=== PATIENT | female | born 1965 | race Caucasian/White ===

== ENCOUNTER 2018-06-24 10:43 | Inpatient (IN) | payer MEDICAID, OTHER ==
[2018-06-24] MEDS ORDERED: OLANZapine DISINTEGR 5 MG TAB PO ONE (11:07)
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
[2018-06-24 11:51] LABS: PLATELET COUNT 251 10^3/uL (150-400)
[2018-06-24] MEDS ORDERED: IBUPROFEN 800 MG TAB PO ONE (12:32)
[2018-06-24] MEDS ORDERED: LORazepam 2 MG/ML INJ IM ONE (14:14)
[2018-06-24] MEDS ORDERED: OLANZapine 10 MG/2 ML VIAL IM ONE (14:18)
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
--- NOTE | 2018-06-24 15:11 | ASMTTCLDSP ---
TLC Discharge Disposition Disposition: Answers: Admit Was patient given the Answers: Yes Inpatient Behavioral Health Prohibited Belongings List while in the ED? 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
[2018-06-24] MEDS ORDERED: MAG HYDROX/AL HYDROX/SIMETH 30 ML UDCUP PO PRN (18:15)
[2018-06-24] MEDS ORDERED: LORazepam 0.5 MG TAB PO PRN (18:15)
[2018-06-25] MEDS: NICOTINE POLACRILEX 2 MG GUM B PRN ×5 (03:39→23:23)
[2018-06-25] MEDS ORDERED: LEVOTHYROXINE 75 MCG TAB PO SCH (06:00)
[2018-06-25] MEDS: LEVOTHYROXINE 75 MCG TAB PO SCH (10:20)
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
[2018-06-25] MEDS ORDERED: VENLAFAXINE XR 75 MG CAP PO SCH ×2 (13:30→13:50)
[2018-06-25] MEDS ORDERED: PANTOPRAZOLE SODIUM 40 MG TAB PO SCH ×2 (13:30→13:50)
--- NOTE | 2018-06-25 13:57 | BCON ---
[f rep st] BEHAVIORAL HEALTH CONSULTATION INTERNAL MEDICINE CONSULTATION DATE OF CONSULTATION: 06/25/2018 REFERRING PHYSICIAN: Lopez Mckeon MD REASON FOR REFERRAL: Medical clearance for inpatient behavioral health stay. HISTORY OF PRESENT ILLNESS: This patient was brought to the emergency department by [employer] on an M1 hold for acting paranoid and delusional. She was evaluated by the mental health team and admitted for further psychiatric care. She currently complains of pain in multiple areas, including headache bilaterally on her lower abdomen over her hips and bilaterally in her proximal posterior thighs. She reports that she has had chronic nausea for months, but only rarely has she vomited. She had a bowel movement today and is beginning to have return of her appetite. PAST MEDICAL HISTORY: 1. Mental health issues with diagnosis of PTSD. 2. Gastroesophageal reflux disorder. 3. Headaches. 4. Chronic abdominal pain. 5. Hypothyroidism. 6. Asthma. 7. Diabetes. 8. Hypertension. 9. Endometriosis. PAST SURGICAL HISTORY: She has not had surgeries. MEDICATIONS: Prior to admission: 1. Lamotrigine 100 mg p.o. q.h.s. 2. Venlafaxine 75 mg p.o. daily. 3. Omeprazole 20 mg p.o. daily. 4. Levothyroxine 75 mcg p.o. daily. 5. Methylphenidate 36 mg p.o. daily. ALLERGIES: Listed to morphine analogues and oxycodone. SOCIAL HISTORY: She lives with a boyfriend. She is not currently employed. She is a smoker and she had a positive urine drug screen for marijuana. FAMILY HISTORY: Her mother has lung cancer. REVIEW OF SYSTEMS: Other than as in HPI, a 10-point review of systems was negative. PHYSICAL EXAM: VITAL SIGNS: Blood pressure is 113/85, heart rate is 80, respiratory rate is 14, oxygen saturation is 98% on room air. Temperature is 36.6 degrees centigrade. Her weight is 83.9 kg for a body mass index of 29. GENERAL: This is an obese appearing woman who looks older than her chronologic age, dressed in street clothes, cooperative, and in no acute distress. HEENT: Extraocular movements are intact. Pupils are equal, round, and reactive to light. Mucous membranes are moist. She has a crowded airway, Mallampati class 3. NECK: Supple. HEART: Regular rate and rhythm with no murmurs, rubs, or gallops. LUNGS: Clear to auscultation bilaterally. ABDOMEN: Soft. She has mild diffuse tenderness. It is nondistended. There are normoactive bowel sounds. There is no hepatosplenomegaly. EXTREMITIES: There is no cyanosis, clubbing, or edema. Radial and dorsalis pedis pulses are 2+ bilaterally. NEUROLOGIC: She is alert and oriented x3. She has pressured speech and is perseverative. There is no focal weakness. Sensation is intact to light touch and gait is within normal limits. LABORATORY STUDIES: From the emergency department, CBC revealed an elevated white count at 11.09 with a predominance of neutrophils and lymphocytes, there was no left shift. Serum chemistry revealed an elevated chloride at 112 and a low carbon dioxide at 20. Glucose was slightly elevated at 110, but this may not have been fasting. Hemoglobin A1c was normal at 5.5. Liver function tests were normal. Lipid panel revealed an elevated LDL at 147, HDL was 56. TSH was elevated at 8.28. Beta hCG was negative for . Serum drug screen was negative for ethyl alcohol and urine drug screen was non-negative for marijuana , but negative otherwise for substances of abuse. ASSESSMENT/RECOMMENDATIONS: 1. Mental health issues pending further evaluation and management per Psychiatry and mental health team. 2. Headaches. We will prescribe Excedrin Migraine, per her request. 3. Chronic pain. We will prescribe ibuprofen. 4. Gastroesophageal reflux disorder. Will prescribe pantoprazole. 5. Tobacco dependence syndrome. She was encouraged to stop smoking. 6. Hypothyroidism with an elevated thyroid-stimulating hormone. She reports that she has been compliant with levothyroxine and has not missed any doses, but given her recent history, she may not be a reliable resolution specialist. Continue levothyroxine as currently prescribed. Advise a repeat TSH in 4-6 weeks. 7. Dyslipidemia. Per the ACC/AHA cardiovascular risk calculator her 10 year risk for myocardial infarction or stroke is 3.9%, and there is no indication for a statin at present. I see no medical contraindications to this patient's continued stay on the inpatient behavioral health unit or to any psychiatric medications or procedures. Thank you very much for including me in the care of this patient, and please do not hesitate to contact me or the hospitalist service should there be a need for further medical evaluation. /[id number]/MODL MTDD
[2018-06-25] MEDS: IBUPROFEN 200 MG TAB PO PRN ×2 (14:04→20:41)
--- NOTE | 2018-06-25 14:53 | ASMTCMCOM ---
CM Note CM Note Notes: The patient completed FRANCIS's for the following people and providers: [facility] [place] Location- Theodore Leslie MD [place] Location- Marlene Mora--Therapist Martina Justice, sister of patient Date Signed: 06/25/2018 11:07 AM Electronically Signed By:Maria C Cadena
[2018-06-25] MEDS ORDERED: VENLAFAXINE XR 75 MG CAP PO ONE (16:15)
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
[2018-06-25] MEDS: ACETAMINOPHEN/ASA/CAFFEINE 1 EACH TAB PO PRN (20:41)
[2018-06-25] MEDS ORDERED: lamoTRIgine 25 MG TAB PO SCH (21:00)
[2018-06-26] MEDS: NICOTINE POLACRILEX 2 MG GUM B PRN ×7 (00:52→19:59)
[2018-06-26] MEDS: IBUPROFEN 200 MG TAB PO PRN ×4 (02:44→20:00)
[2018-06-26] MEDS: ACETAMINOPHEN/ASA/CAFFEINE 1 EACH TAB PO PRN ×4 (02:44→19:59)
--- NOTE | 2018-06-26 07:53 | PDMN ---
Medical Necessity Medical necessity: Pt meets IP criteria per & ADWOA B-[id number]; est los >2 mn for eval/tx of major depressive disorder w/severe psychotic features; pt gravely disabled & on M1 hold; admit for further monitoring, safety, stabilization & med management; per H&P & order 06/24/18
[2018-06-26] MEDS: lamoTRIgine 25 MG TAB PO SCH (08:31)
[2018-06-26] MEDS: OLANZapine 5 MG TAB PO PRN (08:31)
[2018-06-26] MEDS: PANTOPRAZOLE SODIUM 40 MG TAB PO SCH (08:31)
[2018-06-26] MEDS: VENLAFAXINE XR 75 MG CAP PO SCH (08:31)
[2018-06-26] MEDS ORDERED: VENLAFAXINE XR 75 MG CAP PO SCH (09:00)
[2018-06-26] MEDS: LEVOTHYROXINE 75 MCG TAB PO SCH (09:25)
--- NOTE | 2018-06-26 15:44 | ASMTCMCOM ---
CM Note CM Note Notes: CC attempted to meet with pt. Pt. noticed CC and became startled and yelled at CC. Pt. stated "don't come at me all cheerful, it's condescending when someone is in so much pain". Pt. refused to talk with CC. Pt. told staff she only trusts her psychiatrist and won't speak with any other MDs. Staff report pt. being intrusive, demanding, perseverating on pain, society being unfair, people trying to harm her, and people not listening to her. Staff report pt. being disrespectful to staff and peer pts, and presenting as very entitled. Staff report pt. sleeping 3 hours last night. Date Signed: 06/26/2018 03:43 PM Electronically Signed By:Jordana Ying
--- NOTE | 2018-06-26 17:31 | SOAPPROG ---
SOAP Progress Note Assessment/Plan: Assessment: 53 yo woman with h/o MDD, PTSD, admitted for paranoid delusions, confusion and disorganized thought process. She reports she has not been taking meds, but has been smoking "a lot" of marijuana. Plan: 06/26/18 17:22 1. Patient insists she is not delusional and doesn't need treatment for psychosis. 2. Patient doesn't "trust" staff at [facility] and wants Dr. Leslie to come to unit to treat her. 3. Patient claims she is in "profound pain due to PTSD." However, MD observes patient during interview adjust her position in bed, sit up, turn over, reach for her journal and other belongings, rifle through stack of papers, lean out of bed and reach for her water bottle, adjust her clothes, fix her hair, bend over at waist. While performing all of these movements, patient did not exhibit any pain, no grimacing, gasping, exclamations of pain or distress, no interrupted movements, no halting or interruptions in her speech or response to questions. Patient was resting comfortably in bed when MD and RN entered the room. Dr. Ledbetter has requested abdominal CT from [facility] ED which patient says was normal. Patient is receiving ibuprofen and Excedrin PRN for pain relief. 4. Patient only slept 3 hrs last night. She ate 100% of meals today. 5. Patient denies AH/VH, no evidence of RIS or RES. 6. On [facility] Subjective: MD and RN met with patient in her room. She was lying in bed comfortably when MD and RN entered. She rolled over and made eye contact. Eventually she sat up in bed and starting rifling through a stack of papers and her journal. Patient was angry and hostile to MD and RN. She insisted that she wasn't paranoid or psychotic. She told MD, "they decided I was delusional...I'm just in pain." She went on to say, "I'm in profound pain due to PTSD." When MD repeatedly offered to prescribe an antipsychotic medication for mood stability in addition to Lamictal, patient said, "I don't need any mood stabilizer or antipsychotic." She told MD, "I don't trust a single one of you." She said, "I'm not talking to any of you until Dr. Leslie comes to see me." She wanted Dr. Leslie to treat her while she's in hospital. When MD attempted to explain that Dr. Leslie doesn' t work at [facility], patient insisted "it's one of my rights" to be treated by her outpatient doctor while she's in hospital. MD tried to clarify, but patient talked over MD and wouldn't let MD get a word in. Objective: Vital Signs Temp Pulse Resp BP Pulse Ox 36.9 C 90 16 135/99 H 95 06/26/18 16:48 06/26/18 16:48 06/26/18 16:48 06/26/18 16:48 06/26/18 16:48 MSE: Affect: Labile, irritable, angry Mood: "I'm fine" TP: Disorganized, loose , illogical TC: Denies any SI/HI, no AH/VH, still paranoid and delusional Insight/Judgment: Impaired - Time Spent With Patient Time Spent With Patient: 15" - Pending Discharge Pending Discharge Within 24 Hours: No Pending Discharge Within 48 Hours: No ICD10 Worksheet Patient Problems: Problems Problem Status Onset Sharon Acute Paranoia (psychosis) Acute
[2018-06-27] MEDS: NICOTINE POLACRILEX 2 MG GUM B PRN ×8 (01:04→19:59)
[2018-06-27] MEDS: ACETAMINOPHEN/ASA/CAFFEINE 1 EACH TAB PO PRN ×4 (01:59→20:36)
[2018-06-27] MEDS: IBUPROFEN 200 MG TAB PO PRN ×4 (02:00→20:36)
[2018-06-27] MEDS: PANTOPRAZOLE SODIUM 40 MG TAB PO SCH (07:46)
[2018-06-27] MEDS: VENLAFAXINE XR 75 MG CAP PO SCH (07:46)
[2018-06-27] MEDS: lamoTRIgine 25 MG TAB PO SCH (07:46)
[2018-06-27] MEDS: OLANZapine 5 MG TAB PO PRN (07:47)
[2018-06-27] MEDS: LEVOTHYROXINE 75 MCG TAB PO SCH (07:47)
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
[2018-06-27] MEDS: OLANZapine DISINTEGR 10 MG TAB PO SCH (21:05)
[2018-06-28] MEDS: ACETAMINOPHEN/ASA/CAFFEINE 1 EACH TAB PO PRN ×3 (02:40→17:02)
[2018-06-28] MEDS: IBUPROFEN 200 MG TAB PO PRN ×4 (02:40→20:14)
[2018-06-28] MEDS: NICOTINE POLACRILEX 2 MG GUM B PRN ×5 (02:41→20:14)
[2018-06-28] MEDS: ACETAMINOPHEN 325 MG TAB PO PRN ×2 (08:07→10:54)
[2018-06-28] MEDS: LEVOTHYROXINE 75 MCG TAB PO SCH (08:07)
[2018-06-28] MEDS: lamoTRIgine 25 MG TAB PO SCH (08:07)
[2018-06-28] MEDS: PANTOPRAZOLE SODIUM 40 MG TAB PO SCH (08:07)
[2018-06-28] MEDS: VENLAFAXINE XR 75 MG CAP PO SCH (08:07)
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
[2018-06-28] MEDS: OLANZapine DISINTEGR 10 MG TAB PO SCH (20:14)
[2018-06-28] MEDS: LITHIUM CARBONATE ER 300 MG TAB PO SCH (22:17)
[2018-06-29] MEDS: lamoTRIgine 25 MG TAB PO SCH (09:00)
[2018-06-29] MEDS: VENLAFAXINE XR 75 MG CAP PO SCH (09:25)
[2018-06-29] MEDS: LEVOTHYROXINE 75 MCG TAB PO SCH (09:25)
[2018-06-29] MEDS: PANTOPRAZOLE SODIUM 40 MG TAB PO SCH (09:25)
[2018-06-29] MEDS: ACETAMINOPHEN/ASA/CAFFEINE 1 EACH TAB PO PRN ×2 (13:00→18:57)
[2018-06-29] MEDS: IBUPROFEN 200 MG TAB PO PRN ×2 (13:00→18:58)
--- NOTE | 2018-06-29 14:32 | ASMTCMCOM ---
CM Note CM Note Notes: Client remains on the unit talking nonsensical to others and self. Clt remains gravely disabled. Date Signed: 06/29/2018 02:31 PM Electronically Signed By:Joaquín Pierce
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
[2018-06-29] MEDS: NICOTINE POLACRILEX 2 MG GUM B PRN ×4 (16:58→21:37)
[2018-06-29] MEDS: ACETAMINOPHEN 325 MG TAB PO PRN (17:51)
[2018-06-29] MEDS: MAGNESIUM HYDROXIDE 30 ML UDCUP PO PRN (18:59)
[2018-06-29] MEDS: OLANZapine DISINTEGR 10 MG TAB PO SCH (21:13)
[2018-06-29] MEDS: LITHIUM CARBONATE ER 300 MG TAB PO SCH (21:13)
[2018-06-30] MEDS: ACETAMINOPHEN 325 MG TAB PO PRN (00:50)
[2018-06-30] MEDS: NICOTINE POLACRILEX 2 MG GUM B PRN ×10 (00:50→23:20)
[2018-06-30] MEDS: IBUPROFEN 200 MG TAB PO PRN ×2 (04:33→10:11)
[2018-06-30] MEDS: ACETAMINOPHEN/ASA/CAFFEINE 1 EACH TAB PO PRN ×4 (04:33→23:20)
[2018-06-30] MEDS: LEVOTHYROXINE 75 MCG TAB PO SCH (08:37)
[2018-06-30] MEDS: PANTOPRAZOLE SODIUM 40 MG TAB PO SCH (08:38)
[2018-06-30] MEDS: VENLAFAXINE XR 75 MG CAP PO SCH (08:38)
[2018-06-30] MEDS: lamoTRIgine 25 MG TAB PO SCH (08:38)
[2018-06-30] MEDS: MAGNESIUM HYDROXIDE 30 ML UDCUP PO PRN (08:50)
[2018-06-30] MEDS: NAPROXEN SODIUM 220 MG TAB PO PRN ×3 (12:20→23:19)
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
[2018-06-30] MEDS: OLANZapine 5 MG TAB PO PRN ×2 (17:07→23:20)
[2018-06-30] MEDS: LITHIUM CARBONATE ER 300 MG TAB PO SCH (20:19)
[2018-06-30] MEDS: OLANZapine DISINTEGR 10 MG TAB PO SCH (20:19)
[2018-07-01] MEDS: NICOTINE POLACRILEX 2 MG GUM B PRN ×10 (03:51→22:00)
[2018-07-01] MEDS: NAPROXEN SODIUM 220 MG TAB PO PRN ×3 (06:48→21:58)
[2018-07-01] MEDS: OLANZapine 5 MG TAB PO PRN ×2 (06:49→12:33)
[2018-07-01] MEDS: PANTOPRAZOLE SODIUM 40 MG TAB PO SCH (09:02)
[2018-07-01] MEDS: MAGNESIUM HYDROXIDE 30 ML UDCUP PO PRN (09:02)
[2018-07-01] MEDS: VENLAFAXINE XR 75 MG CAP PO SCH (09:02)
[2018-07-01] MEDS: lamoTRIgine 25 MG TAB PO SCH (09:02)
[2018-07-01] MEDS: ACETAMINOPHEN/ASA/CAFFEINE 1 EACH TAB PO PRN ×3 (09:58→21:58)
[2018-07-01] MEDS: LEVOTHYROXINE 75 MCG TAB PO SCH (09:58)
--- NOTE | 2018-07-01 13:31 | ASMTCMCOM ---
CM Note CM Note Notes: Client remains busy on the unit. Monopolizing this securities underwriter's and others time to speak about delusional things, idea or points of reference, etc. Date Signed: 07/01/2018 01:31 PM Electronically Signed By:Joaquín Pierce
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
[2018-07-01] MEDS: LITHIUM CARBONATE ER 300 MG TAB PO SCH (18:05)
[2018-07-01] MEDS: OLANZapine DISINTEGR 10 MG TAB PO SCH (21:59)
[2018-07-02] MEDS: OLANZapine 5 MG TAB PO PRN (00:33)
[2018-07-02] MEDS: NICOTINE POLACRILEX 2 MG GUM B PRN ×11 (00:34→23:38)
[2018-07-02] MEDS: NAPROXEN SODIUM 220 MG TAB PO PRN ×3 (04:00→16:45)
[2018-07-02] MEDS: ACETAMINOPHEN/ASA/CAFFEINE 1 EACH TAB PO PRN ×3 (04:00→18:02)
[2018-07-02] MEDS: VENLAFAXINE XR 75 MG CAP PO SCH (08:27)
[2018-07-02] MEDS: lamoTRIgine 25 MG TAB PO SCH (08:27)
[2018-07-02] MEDS: LEVOTHYROXINE 75 MCG TAB PO SCH (08:28)
[2018-07-02] MEDS: PANTOPRAZOLE SODIUM 40 MG TAB PO SCH (08:29)
--- NOTE | 2018-07-02 14:29 | ASMTCMCOM ---
CM Note CM Note Notes: CC checked in with ct. in her room. She presented with somewhat of a pressured speech. She was rambling and was difficult to interrupt Context of conversation was delusional and paranoid and ct. repeated herself constantly Main complaints were her sense that no one believes her, that everyone thinks that she is crazy and that she is afraid of her BF. Date Signed: 07/02/2018 02:28 PM Electronically Signed By:Jade Hester
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
[2018-07-02] MEDS: MAGNESIUM HYDROXIDE 30 ML UDCUP PO PRN (15:37)
[2018-07-02] MEDS: LITHIUM CARBONATE ER 300 MG TAB PO SCH (20:56)
[2018-07-02] MEDS: OLANZapine DISINTEGR 10 MG TAB PO SCH (20:57)
[2018-07-03] MEDS: ACETAMINOPHEN/ASA/CAFFEINE 1 EACH TAB PO PRN ×4 (00:05→19:18)
[2018-07-03] MEDS: NICOTINE POLACRILEX 2 MG GUM B PRN ×12 (02:04→21:57)
[2018-07-03] MEDS: NAPROXEN SODIUM 220 MG TAB PO PRN ×3 (05:36→19:17)
[2018-07-03] MEDS: VENLAFAXINE XR 75 MG CAP PO SCH (08:05)
[2018-07-03] MEDS: lamoTRIgine 25 MG TAB PO SCH (08:06)
[2018-07-03] MEDS: PANTOPRAZOLE SODIUM 40 MG TAB PO SCH (08:06)
[2018-07-03] MEDS: LEVOTHYROXINE 75 MCG TAB PO SCH (08:06)
--- NOTE | 2018-07-03 12:53 | ASMTCMCOM ---
CM Note CM Note Notes: Client remains mostly the same, paranoid alert with limited insight. Client did take a shower today while denying any anxiety, depression, S/I-H/I or AVH. She still believes that "everyone thinks I am crazy and no one believes me." Client presents as slightly better than previous days; however, is still very sick. Date Signed: 07/03/2018 12:52 PM Electronically Signed By:Joaquín Pierce
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
[2018-07-03] MEDS: OLANZapine 5 MG TAB PO PRN (18:14)
[2018-07-03] MEDS: LITHIUM CARBONATE ER 300 MG TAB PO SCH (20:07)
[2018-07-03] MEDS: OLANZapine DISINTEGR 10 MG TAB PO SCH (20:08)
[2018-07-04] MEDS: NAPROXEN SODIUM 220 MG TAB PO PRN ×4 (00:06→21:34)
[2018-07-04] MEDS: NICOTINE POLACRILEX 2 MG GUM B PRN ×12 (00:07→23:49)
[2018-07-04] MEDS: OLANZapine 5 MG TAB PO PRN ×2 (00:19→23:49)
[2018-07-04] MEDS: ACETAMINOPHEN/ASA/CAFFEINE 1 EACH TAB PO PRN ×3 (06:32→18:22)
[2018-07-04] MEDS: PANTOPRAZOLE SODIUM 40 MG TAB PO SCH (07:55)
[2018-07-04] MEDS: VENLAFAXINE XR 75 MG CAP PO SCH (07:55)
[2018-07-04] MEDS: LEVOTHYROXINE 75 MCG TAB PO SCH (07:56)
[2018-07-04] MEDS: lamoTRIgine 25 MG TAB PO SCH (07:57)
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
[2018-07-04] MEDS: LITHIUM CARBONATE ER 300 MG TAB PO SCH (20:03)
[2018-07-04] MEDS: OLANZapine DISINTEGR 10 MG TAB PO SCH (20:03)
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
[2018-07-05] MEDS: ACETAMINOPHEN/ASA/CAFFEINE 1 EACH TAB PO PRN ×4 (00:22→20:54)
[2018-07-05] MEDS: NICOTINE POLACRILEX 2 MG GUM B PRN ×9 (04:09→20:53)
[2018-07-05] MEDS: NAPROXEN SODIUM 220 MG TAB PO PRN ×5 (04:09→22:28)
[2018-07-05] MEDS: lamoTRIgine 25 MG TAB PO SCH (08:18)
[2018-07-05] MEDS: LEVOTHYROXINE 75 MCG TAB PO SCH (08:18)
[2018-07-05] MEDS: VENLAFAXINE XR 75 MG CAP PO SCH (08:18)
[2018-07-05] MEDS: PANTOPRAZOLE SODIUM 40 MG TAB PO SCH (08:18)
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
[2018-07-05] MEDS: LITHIUM CARBONATE ER 300 MG TAB PO SCH (20:52)
[2018-07-05] MEDS: OLANZapine DISINTEGR 10 MG TAB PO SCH (20:53)
[2018-07-06] MEDS: OLANZapine 5 MG TAB PO PRN (00:36)
[2018-07-06] MEDS: NICOTINE POLACRILEX 2 MG GUM B PRN ×13 (00:36→22:56)
[2018-07-06] MEDS: ACETAMINOPHEN/ASA/CAFFEINE 1 EACH TAB PO PRN ×3 (05:07→16:58)
[2018-07-06] MEDS: VENLAFAXINE XR 75 MG CAP PO SCH (08:50)
[2018-07-06] MEDS: lamoTRIgine 25 MG TAB PO SCH (08:50)
[2018-07-06] MEDS: PANTOPRAZOLE SODIUM 40 MG TAB PO SCH ×2 (08:51→08:52)
[2018-07-06] MEDS: LEVOTHYROXINE 75 MCG TAB PO SCH (08:51)
[2018-07-06] MEDS: NAPROXEN SODIUM 220 MG TAB PO PRN ×3 (13:48→20:11)
--- NOTE | 2018-07-06 14:16 | SOAPPROG ---
SOAP Progress Note Assessment/Plan: Assessment: Plan: 06/28/18 11:52 Bipolar D/o: Remains manic with severe disorganization and behavioral disturbance. She is compliant with meds thus far. Will encourage Zyprexa at for additional anti-manic benefit and sleep. 06/29/18 16:08 Bipolar D/o: Some improvement. CCM. 06/30/18 13:24 Bipolar D/o: No interval change. Remains pressured, paranoid. Borderline traits are becoming more obvious as she splits numerous staff members and others , mainly along gender lines. Will CCM. 07/01/18 16:54 Bipolar D/o: Slow improvement despite adequate pharmacological treatment. CCM. [place] level in a.m. 07/02/18 14:33 Bipolar D/o: Continued slow improvement. CCM. 07/05/18 16:55 Bipolar D/o: Continued improvement. CCM. 07/06/18 14:17 Bipolar D/o: Continued improvement. CCM. Continue d/c planning. Now looks like she will return to her previous circumstance at d/c. Subjective: Pt seen, discussed with staff. Reports feeling "great, normal." Interviewed with CC to discuss d/c plan. Pt perseverates on the "trauma" of me stating she has bipolar d/o yesterday in the family meeting. Unclear why this is so upsetting to her. She repeats numerous times that "nobody told me you were changing my diagnosis." Remains compliant with meds. Sleep continues to improve. Remains animated, pressured. Less labile/irritable. Less paranoid today, stating she feels safe to go back to her home with her SO and is not as worried about being poisoned. Objective: Vital Signs Temp Pulse Resp BP Pulse Ox 36.2 C 74 14 141/80 H 95 07/06/18 06:49 07/06/18 06:49 07/06/18 06:49 07/06/18 06:49 07/06/18 06:49 MSE: Animated, though approp. Speech is rapid, pressured, but improving. Affect is expansive, not irritable. Mood is "good." TP linear at times, tangential at others. TC reveals no psychosis. No SI/HI/. - Time Spent With Patient Time Spent With Patient: 25" ICD10 Worksheet Patient Problems: Problems Problem Status Onset [place] Acute Paranoia (psychosis) Acute
--- NOTE | 2018-07-06 14:25 | ASMTCMCOM ---
CM Note CM Note Notes: Pt. met with CC and MD together today. Pt. stated she now feels comfortable and safe going back home. Pt. reports "feel so much better". Pt. stated she "I'm on the right track" with her bowels. Pt. stated she is not happy about her Bipolar diagnosis. Pt. stated she now wants to work on getting SSI benefits. Pt. reports dry mouth from taking [place]. Pt. stated her Lamictal and Effexor are not at high enough levels. MD aware Pt. stated "I'm just an amazing person" adding she likes to honor herself. Pt. stated "I want to be gone from here andrew". Pt. stated "flirting with people who are committed is fun". Pt. requested a Medicaid taxi ride home and to her follow up appointments. Staff report pt. sleeping 6.5 hours and is medication compliant. Date Signed: 07/06/2018 02:25 PM Electronically Signed By:Jordana Ying
[2018-07-06] MEDS: OLANZapine DISINTEGR 10 MG TAB PO SCH (21:35)
[2018-07-06] MEDS: LITHIUM CARBONATE ER 300 MG TAB PO SCH (21:35)
[2018-07-07] MEDS: NAPROXEN SODIUM 220 MG TAB PO PRN ×3 (00:27→15:31)
[2018-07-07] MEDS: NICOTINE POLACRILEX 2 MG GUM B PRN ×13 (00:30→22:43)
[2018-07-07] MEDS: ACETAMINOPHEN/ASA/CAFFEINE 1 EACH TAB PO PRN ×3 (02:53→17:40)
--- NOTE | 2018-07-07 07:57 | ASMTCMCOM ---
CM Note CM Note Notes: CC confirmed follow up appts (see below): Follow Up with: Theodore Leslie MD [facility] [address] [place] [address], [address] [place] [address] Appt: Thursday July 19, 2018 (07/19/18) at 1:00pm Marlene Austin [facility] [address] [place] [address], [address] [place] [address] Appointment: 07/09/18 at 4:00pm [facility] [address] [place] [id number] Date Signed: 07/07/2018 07:56 AM Electronically Signed By:Joaquín Pierce
[2018-07-07] MEDS: lamoTRIgine 25 MG TAB PO SCH (09:27)
[2018-07-07] MEDS: PANTOPRAZOLE SODIUM 40 MG TAB PO SCH (09:28)
[2018-07-07] MEDS: LEVOTHYROXINE 75 MCG TAB PO SCH (09:29)
[2018-07-07] MEDS: VENLAFAXINE XR 75 MG CAP PO SCH (09:30)
[2018-07-07] MEDS: MAGNESIUM HYDROXIDE 30 ML UDCUP PO PRN (09:57)
--- NOTE | 2018-07-07 12:47 | ASMTBHDC ---
Notes Note: Notes: Updated out-patient appts for client: Follow Up with: Theodore Leslie MD [facility] [address] [place] [address], [address] [place] [address] Next Appt: July 08 (07/08/18) at 1:30pm Marlene Cosmebenji [facility] [address] [place] [address], [address] [place] [address] Appointment: 07/09/18 at 4:00pm Additional Resources: [facility] [address] [place] [id number] Date Signed: 07/07/2018 12:46 PM Electronically Signed By:Joaquín Pierce
--- NOTE | 2018-07-07 13:04 | ASMTCMCOM ---
CM Note CM Note Notes: Client attended treatment planning meeting with team. Client presents better overall than previous days (mood, insight, logic, etc.). CC confirmed with BF of client that he would be willing to have her return home tomorrow after her medication appointment, etc. Client is happy to see her "doctor and go home." See discharge checklist for additional informaiton.* Date Signed: 07/07/2018 01:04 PM Electronically Signed By:Joaquín Pierce
--- NOTE | 2018-07-07 14:28 | SOAPPROG ---
SOAP Progress Note Assessment/Plan: Assessment: Plan: 06/28/18 11:52 Bipolar D/o: Remains manic with severe disorganization and behavioral disturbance. She is compliant with meds thus far. Will encourage Zyprexa at for additional anti-manic benefit and sleep. 06/29/18 16:08 Bipolar D/o: Some improvement. CCM. 06/30/18 13:24 Bipolar D/o: No interval change. Remains pressured, paranoid. Borderline traits are becoming more obvious as she splits numerous staff members and others , mainly along gender lines. Will CCM. 07/01/18 16:54 Bipolar D/o: Slow improvement despite adequate pharmacological treatment. CCM. [place] level in a.m. 07/02/18 14:33 Bipolar D/o: Continued slow improvement. CCM. 07/05/18 16:55 Bipolar D/o: Continued improvement. CCM. 07/06/18 14:17 Bipolar D/o: Continued improvement. CCM. Continue d/c planning. Now looks like she will return to her previous circumstance at d/c. 07/07/18 14:28 Bipolar D/o: Doing well overall. The treatment team discussed with her concerns for her continued impulsive and potentially socially inapprop. behaviors. She acknowledges these and states she understands the need to exercise better control over herself. She continues to request d/c to home. CC talked to SO who states he believes she is ready to d/c. Will [facility] for now, consider d/c tomorrow to attend outpatient appt and return home. Subjective: Pt seen, discussed with staff, interviewed in treatment team meeting. Continues to calm. Able to self-monitor and not interrupt. Reiterates plan to return to her previous living circumstance. States she believes the meds are helping. No SE's noted. Objective: Vital Signs Temp Pulse Resp BP Pulse Ox 36.6 C 81 16 123/65 H 98 07/07/18 00:30 07/07/18 00:30 07/07/18 00:30 07/07/18 00:30 07/07/18 00:30 MSE: Calmer, coop, appropriately interactive. Affect is euthymic, stable. Mood is "good." TP generally linear, some occasional excursions, but able to refocus on her own. TC reveals continued paranoia that her SO is poisoning her , but she now states she isn't worried about her safety. - Time Spent With Patient Time Spent With Patient: 25" ICD10 Worksheet Patient Problems: Problems Problem Status Onset Sharon Acute Paranoia (psychosis) Acute
[2018-07-07] MEDS: OLANZapine DISINTEGR 10 MG TAB PO SCH (21:36)
[2018-07-07] MEDS: LITHIUM CARBONATE ER 300 MG TAB PO SCH (21:36)
[2018-07-08] MEDS: NAPROXEN SODIUM 220 MG TAB PO PRN ×3 (02:19→12:30)
[2018-07-08] MEDS: NICOTINE POLACRILEX 2 MG GUM B PRN ×3 (02:19→08:03)
[2018-07-08 02:29] VITALS: BP 140/80
[2018-07-08] MEDS: ACETAMINOPHEN/ASA/CAFFEINE 1 EACH TAB PO PRN (08:00)
[2018-07-08] MEDS: VENLAFAXINE XR 75 MG CAP PO SCH (08:01)
[2018-07-08] MEDS: lamoTRIgine 25 MG TAB PO SCH (08:01)
[2018-07-08] MEDS: LEVOTHYROXINE 75 MCG TAB PO SCH (08:01)
[2018-07-08] MEDS: PANTOPRAZOLE SODIUM 40 MG TAB PO SCH (08:03)
--- NOTE | 2018-07-12 14:23 | BDS ---
REASON FOR ADMISSION: Patient is a 53-year-old female with a history of bipolar disorder. She apparently has been treated primarily for depression in the past and her outpatient team states that they have not actually seen her in full-blown xiang before. She reportedly developed increasing symptoms of xiang and began demonstrating paranoia, believing that her significant other was druggin g her medications and food and that her boyfriend and police were out to get her. She has not been s leeping and not eating and had not been taking her prescribed medications. She was placed on an M1 h old by [facility] and referred to the emergency department for further evaluation. She w as felt to be gravely disabled. Admitted to the inpatient unit for stabilization. She was initially evaluated by Dr. Souleymane Mckeon. ADMITTING DIAGNOSES: Major depressive disorder, recurrent, severe, with psychosis; rule out substanc e induced psychosis; posttraumatic stress disorder by history; cannabis use disorder severe; lack of social supports; paranoia, unemployment; financial problems; and the terminal illness of her mother. ADMISSION PHYSICAL EXAMINATION: Performed by Dr. Sergei Ledbetter, revealed no acute physical finding s. ADMISSION LABORATORY: CBC showed a white count of 11.09, otherwise normal. Serum chemistries were n ormal with the exception of a nonfasting glucose up of 110. Liver function was normal. Lipid profil e showed LDL up at 147, non LDL up at 164, TSH up at 8.2. Beta hCG was negative. Urinalysis showed no evidence of infection. Urine drug screen was positive for marijuana. HOSPITAL COURSE: Patient was admitted to the [facility] inpatient unit on an M1 hold. She was initially evaluated and treated by Dr. Mckeon until I assumed her care on 06/28/2018. At that time Dr. Mckeon had begun treatment by first decreasing her Effexor to 75 mg daily and adding Zyprexa 10 mg. She tolerated this well with no side effects. She also continued to take Lamictal, which vilma arently was an outpatient medication, though it was unclear how long she had been off it, so was re-t itrated. She did arrive at 100 mg at the time of discharge. She was generally compliant, but demons trated significant pressure of speech and increased thought production. She was impulsive and intrus peace at times, annoying fellow patients, and unable to sit through groups. She would tend to overpowe r the group with her pressured speech and was very much in enmeshed in her delusional systems. These centered primarily around her boyfriend poisoning her and hacking into her computer and bank account s. We had a family meeting with the boyfriend via phone as she did not want him on the unit and he a damantly denied these things. It seemed that his story was very reasonable and while hers appeared t o be paranoid as she insisted that he was trying to give her symptoms of pancreatic cancer so that bruno padron would believe she had pancreatic cancer and that he was working with either the [employer] or the [employer]. She was not amenable to a feedback on this earlier in her hospitalization, but later seemed t o gain some perspective and stated that she was willing to return to the home she shares with the [facility] other. The patient's hospitalization was uncomplicated. She gradually improved after the addition of lithiu m. It was felt that she required a second mood stabilizer as we were increasing Lamictal due to her persistent manic symptoms. She was agreeable to this and tolerated it well. She achieved a level of 0.7 on 07/02/2018 at 600 mg at bedtime. She tolerated this well with no side effects. Eventually, the patient was able to voice a desire to return to her previous living circumstance, fol low up with her outpatient providers and continue to take her medications on a voluntary basis. We t alked at length about the negative aspect of marijuana in the management of any mood disorder includi ng what may be a burgeoning bipolar disorder. We discussed some, the possibility that the xiang was more a product of the cannabis than it was evidence of an underlying bipolar illness. I indicated to her that it should be managed as if she did have a bipolar illness, as this would be part of my disc harge diagnosis. She was "traumatized" by this assertion, though it was unclear what this really ambreen nt. All in all, she was accepting of the treatment and stated that she desired to be compliant. By the time of discharge, she was eating well, was no longer hypersexual, was much less impulsive and in trusive. Pressured speech had resolved and she was sleeping adequately. CONDITION ON DISCHARGE: Stable. Patient's affect was euthymic, stable, and appropriate and she was showing minimal evidence of her paranoid delusions. She was voicing no thoughts of suicide, homicide , or violence. DISCHARGE DIAGNOSES: Bipolar 1 disorder, most recent episode manic, severe with psychosis, chronic i llness, recurrent illness; cannabis use disorder, severe; problems with primary supports; hypothyroid ism. DISCHARGE MEDICATIONS: Include: Venlafaxine XR 75 mg daily, Protonix 40 mg daily, Zyprexa Zydis 10 mg at HS, naproxen sodium 220 mg t hree times daily, lithium carbonate ER 600 mg at HS, Excedrin 1 tablet q.6 hours p.r.n. headache, Syn throid 75 mcg daily, and Lamictal 100 mg at bedtime. It is of note that patient's methylphenidate wa s discontinued during her stay. DISPOSITION: Patient left the hospital with her significant other to return to the home they share. LEGAL COURSE: The patient was placed on a short-term certification at the expiration of her M1 hold. Short-term certification was discontinued at the time of her discharge. The patient's attitude at the time of discharge was positive for thinking. There are no pending labs or studies at time of discharge. Patient was a full code throughout her stay. The patient was given written instructions as to her followup times and dates. /[id number]/MODL
== END 2018-07-08 12:35 | disposition home or self-care (01) | DRG 757 ==
LOC: EDUNIT# → BBEH 17:15
PROVIDERS: ADMIT Psychiatry & Neurology Psychiatry; ATTEND Psychiatry & Neurology Psychiatry
DX: F06.33 Mood disorder due to known physiological condition with manic features (principal); F12.188 Cannabis abuse with other cannabis-induced disorder; E11.9 Type 2 diabetes mellitus without complications; K21.9 Gastro-esophageal reflux disease without esophagitis; R10.9 Unspecified abdominal pain; I10 Essential (primary) hypertension
CPT/HCPCS: 80305; G0480; J2060